=== PATIENT | female | born 1970 | race Two or more races ===

== ENCOUNTER 2024-05-29 15:23 | Outpatient (CLI) | payer OTHER, SELFPAY | END 2024-05-29 15:24 | disposition home or self-care (01) | PROVIDERS: Visit Provider Nurse Practitioner | DX: R06.02 Shortness of breath (principal) | CPT/HCPCS: 83880; 84484 ==

== ENCOUNTER 2024-06-05 11:25 | Outpatient (CLI) | payer OTHER, SELFPAY | END 2024-06-05 11:26 | disposition home or self-care (01) | PROVIDERS: PCP Registered Nurse; Visit Provider Registered Nurse | DX: E78.1 Pure hyperglyceridemia (principal); I10 Essential (primary) hypertension; E11.9 Type 2 diabetes mellitus without complications | CPT/HCPCS: 80053; 80061 ==